=== PATIENT | male | born 1990 | race African-American/Black ===

== ENCOUNTER 2019-12-23 17:22 | Emergency (ER) | payer OTHER ==
[~2019-12-23] VITALS: Ht 175.3 cm; Wt 76.2 kg
[2019-12-23 21:20] VITALS: BP 110/84
== END 2019-12-23 21:21 | disposition home or self-care (01) ==
LOC: ER 17:22
DX: M79.10 Myalgia, unspecified site (principal); G89.29 Other chronic pain; M25.532 Pain in left wrist; M25.572 Pain in left ankle and joints of left foot; F17.210 Nicotine dependence, cigarettes, uncomplicated; Z98.890 Other specified postprocedural states; X50.1XXA Overexertion from prolonged static or awkward postures, initial encounter; Y93.89 Activity, other specified; Y92.89 Other specified places as the place of occurrence of the external cause; Y99.8 Other external cause status